=== PATIENT | male | born 1975 | race American Indian/Alaskan Native ===

== ENCOUNTER 2019-10-26 14:02 | Emergency (ER) | payer SELFPAY ==
--- NOTE | 2019-10-26 15:42 | Event Note ---
ED Screening Note ED Screening Note: pt has N/V/D abd pain states he has a hx of crohns no fever states he has not seen a GI doctor in 3 years This initial assessment/diagnostic orders/clinical plan/treatment(s) is/are subject to change based on patients health status, clinical progression and re- assessment by fellow clinical providers in the ED. Further treatment and workup at subsequent clinical providers discretion. Patient/guardian urged not to elope from the ED as their condition may be serious if not clinically assessed and man aged. Initial orders include: labs
[2019-10-26 16:22] LABS: Basophils # (Auto) 0.1 K/mm3 (0.0-0.1); Basophils % (Auto) 0.5 % (0.0-1.8); Eosinophils % (Auto) 0.1 % (0.0-4.3); Hematocrit 44.8 % (35.5-45.6); Hemoglobin 14.8 gm/dl (11.8-15.2); Lymphocytes # (Auto) 1.9 K/mm3 (1.2-5.4); Lymphocytes % (Auto) 15.8 % (13.4-35.0); Mean Corpuscular HGB Conc 33 % (32-34); Mean Corpuscular Volume 85 fl (84-94); Monocytes # (Auto) 1.2 K/mm3 (0.0-0.8); Monocytes % (Auto) 9.8 % (0.0-7.3); Platelet Count 207 K/mm3 (140-440); Red Cell Distribution Width 14.8 % (13.2-15.2)
[2019-10-26 16:42] LABS: Alanine Aminotransferase 14 units/L (7-56); Albumin 4.2 g/dL (3.9-5); BUN/Creatinine Ratio 23; Blood Urea Nitrogen 23 mg/dL (9-20); Calcium 9.9 mg/dL (8.4-10.2); Hemolysis Index 6
[2019-10-26] MEDS ORDERED: MORPHINE 4 MG/1 ML INJ IV ONE (17:53)
[2019-10-26] MEDS ORDERED: ONDANSETRON 4 MG/2 ML INJ IV ONE (17:53)
--- NOTE | 2019-10-26 17:54 | Emergency Department Report ---
<CHACORTA BUCHANAN - Last Filed: 10/26/19 19:05> ED Abdominal Pain HPI - General Chief Complaint: Nausea/Vomiting/Diarrhea Stated Complaint: CHRONE'S/VOMITTING Time Seen by Provider: 10/26/19 15:40 Source: patient Mode of arrival: Ambulatory Limitations: No Limitations - History of Present Illness Initial Comments: Is a pleasant 44-year-old male who presents the emergency department with chief complaint with generalized abdominal pain, nausea, vomiting, diarrhea. Patient's past medical Crohn's disease but is not on any medications currently. Patient describes the pain as cramping and rates it as a 8 out of 10 in severity . Patient denies bloody or bilious vomiting, bloody stools, melena, cheesy, fever, chills, night sweats, headache, tinnitus, blurry vision or any associated symptoms. Patient denies any known allergies to medications. MD Complaint: abdominal pain Severity scale (0 -10): 1 - Related Data Previous Rx's Medication Instructions Recorded Last Taken Type Acetaminophen/Codeine [Tylenol 1 tab PO Q6H PRN #12 tab 10/26/19 Unknown Rx /Codeine # 3 tab] Ciprofloxacin HCl [Ciprofloxacin 500 mg PO Q12HR #10 tab 10/26/19 Unknown Rx TAB] Ondansetron [Zofran Odt] 4 mg PO Q8HR PRN #12 tab.rapdis 10/26/19 Unknown Rx metroNIDAZOLE [Flagyl TAB] 250 mg PO Q12HR #14 tab 10/26/19 Unknown Rx Allergies Allergy/AdvReac Type Severity Reaction Status Date / Time No Known Allergies Allergy Unverified 10/26/19 14:06 ED Review of Systems Comment: All other systems reviewed and negative Constitutional: denies: chills, fever Eyes: denies: eye pain, eye discharge, vision change ENT: denies: ear pain, throat pain Respiratory: denies: cough, shortness of breath, wheezing Cardiovascular: denies: chest pain, palpitations Endocrine: no symptoms reported Gastrointestinal: as per HPI, abdominal pain, nausea, vomiting, diarrhea Genitourinary: denies: urgency, dysuria Musculoskeletal: denies: back pain, joint swelling, arthralgia Skin: denies: rash, lesions Neurological: denies: headache, weakness, paresthesias Psychiatric: denies: anxiety, depression Hematological/Lymphatic: denies: easy bleeding, easy bruising ED Past Medical Hx - Past Medical History Previous Medical History?: Yes Additional medical history: chrons - Surgical History Past Surgical History?: No - Social History Smoking Status: Never Smoker Substance Use Type: None - Medications Home Medications: Home Medications Medication Instructions Recorded Confirmed Last Taken Type Acetaminophen/Codeine [Tylenol 1 tab PO Q6H PRN #12 tab 10/26/19 Unknown Rx /Codeine # 3 tab] Ciprofloxacin HCl [Ciprofloxacin 500 mg PO Q12HR #10 tab 10/26/19 Unknown Rx TAB] Ondansetron [Zofran Odt] 4 mg PO Q8HR PRN #12 tab.rapdis 10/26/19 Unknown Rx metroNIDAZOLE [Flagyl TAB] 250 mg PO Q12HR #14 tab 10/26/19 Unknown Rx ED Physical Exam - General Limitations: No Limitations General appearance: alert, in no apparent distress - Head Head exam: Present: atraumatic, normocephalic - Eye Eye exam: Present: normal appearance, PERRL, EOMI Pupils: Present: normal accommodation - ENT ENT exam: Present: normal exam, normal orophraynx, mucous membranes moist - Neck Neck exam: Present: normal inspection, full ROM. Absent: tenderness, meningismus, lymphadenopathy, thyromegaly - Respiratory Respiratory exam: Present: normal lung sounds bilaterally. Absent: respiratory distress, wheezes, rales, rhonchi, stridor - Cardiovascular Cardiovascular Exam: Present: regular rate, normal rhythm, normal heart sounds. Absent: systolic murmur, diastolic murmur, rubs, gallop - GI/Abdominal GI/Abdominal exam: Present: soft, tenderness (generalized tenderness to palpation, no rebound or guarding [place] Uriostegui sign, negative McBurney's point tenderness), normal bowel sounds. Absent: distended - Rectal Rectal exam: Present: deferred - Extremities Exam Extremities exam: Present: normal inspection - Back Exam Back exam: Present: normal inspection - Neurological Exam Neurological exam: Present: alert, oriented X3 - Psychiatric Psychiatric exam: Present: normal affect, normal mood - Skin Skin exam: Present: warm, dry, intact, normal color. Absent: rash ED Medical Decision Making - Lab Data Result diagrams: 10/26/19 16:06 10/26/19 16:06 Lab Results 10/26/19 10/26/19 Range/Units 16:06 16:06 WBC 12.0 H (4.5-11.0) K/mm3 RBC 5.30 H (3.65-5.03) M/mm3 Hgb 14.8 (11.8-15.2) gm/dl Hct 44.8 (35.5-45.6) % MCV 85 (84-94) fl MCH 28 (28-32) pg MCHC 33 (32-34) % RDW 14.8 (13.2-15.2) % Plt Count 207 (140-440) K/mm3 Lymph % (Auto) 15.8 (13.4-35.0) % [place] % (Auto) 9.8 H (0.0-7.3) % Eos % (Auto) 0.1 (0.0-4.3) % Baso % (Auto) 0.5 (0.0-1.8) % Lymph # 1.9 (1.2-5.4) K/mm3 [place] # 1.2 H (0.0-0.8) K/mm3 Eos # 0.0 (0.0-0.4) K/mm3 Baso # 0.1 (0.0-0.1) K/mm3 Seg Neutrophils % 73.8 H (40.0-70.0) % Seg Neutrophils # 8.9 H (1.8-7.7) K/mm3 Sodium 134 L (137-145) mmol/L Potassium 3.8 (3.6-5.0) mmol/L Chloride 95.8 L (98-107) mmol/L Carbon Dioxide 20 L (22-30) mmol/L Anion Gap 22 mmol/L BUN 23 H (9-20) mg/dL Creatinine 1.0 (0.8-1.5) mg/dL Estimated GFR > 60 ml/min BUN/Creatinine Ratio 23 % Glucose 108 H (75-100) mg/dL Calcium 9.9 (8.4-10.2) mg/dL Total Bilirubin 0.30 (0.1-1.2) mg/dL AST 24 (5-40) units/L ALT 14 (7-56) units/L Alkaline Phosphatase 108 (35-129) units/L Total Protein 8.7 H (6.3-8.2) g/dL Albumin 4.2 (3.9-5) g/dL Albumin/Globulin Ratio 0.9 % Lipase 16 (13-60) units/L - Radiology Data Radiology results: pending - Medical Decision Making Patient nontoxic in no acute distress. Patient generalized abdominal tenderness but no rebound or guarding and negative McBurney's point tenderness. Lab showed a mild leukocytosis. Patient was slightly tachycardic on initial evaluation however on exam his heart sounds did not sound tachycardic. Lactate and blood cultures were ordered as well as CT of abdomen and pelvis with IV contrast. Patient will be signed out to colleague CLAIRE Garcia pending CT and reevaluation. Patient nontoxic in no acute distress at this time. - Differential Diagnosis Crohn's flare, appendicitis, abscess ED Disposition Clinical Impression: Crohn's colitis Abdominal pain Qualifiers: Abdominal location: generalized Qualified Code(s): R10.84 - Generalized abdominal pain Disposition: - TO HOME OR SELFCARE Condition: Stable Instructions: Acute Abdominal Pain (ED) Prescriptions: Ciprofloxacin HCl [Ciprofloxacin TAB] 500 mg PO Q12HR #10 tab metroNIDAZOLE [Flagyl TAB] 250 mg PO Q12HR #14 tab Acetaminophen/Codeine [Tylenol /Codeine # 3 tab] 1 tab PO Q6H PRN #12 tab PRN Reason: Pain , Severe (7-10) Ondansetron [Zofran Odt] 4 mg PO Q8HR PRN #12 tab.rapdis PRN Reason: Nausea Referrals: PRIMARY CARE, [Primary Care Provider] - 3-5 Days [facility] [Provider Group] - 3-5 Days Forms: Work/School Release Form(ED) <GABINO BUI - Last Filed: 10/26/19 22:38> ED Review of Systems ROS: Stated complaint: CHRONE'S/VOMITTING Other details as noted in HPI ED Course Vital Signs 10/26/19 10/26/19 15:40 20:44 Temperature 99.0 F 98.9 F Pulse Rate 118 H 108 H Respiratory 18 16 Rate Blood Pressure 140/94 Blood Pressure 140/94 146/88 [Right] O2 Sat by Pulse 99 97 Oximetry ED Medical Decision Making - Lab Data Result diagrams: 10/26/19 16:06 10/26/19 16:06 - Radiology Data Radiology results: report reviewed Patient: PATRICIA MARIA MR#: [id number] : 1975 Acct:[id number] Age/Sex: 44 / M ADM Date: 10/26/19 Loc: ED Attending Dr: Ordering Physician: CLAIRE HUANG Date of Service: 10/26/19 Procedure(s): CT abdomen pelvis w con Accession Number(s): [id number] cc: CLAIRE HUANG CT ABDOMEN AND PELVIS WITH CONTRAST INDICATION: abdominal pain, fever, crohns disease CONTRAST: 100 cc Omnipaque 300 IV COMPARISON: None available. All CT scans at this location are performed using CT dose reduction for ALARA by means of automated exposure control. FINDINGS: Rounded areas of lucency with sclerotic borders in the left ilium have a benign type of appearance. Lung bases are mildly blurred by motion. No areas of consolidation are seen. Mild probable scarring is noted in the right lower lobe medially. No pneumoperitoneum is seen. No significant abdominal wall herniation is seen. Probable tiny cysts are seen in the liver. Gallbladder and bile ducts appear within normal limits. Pancreas shows no obvious masses or inflammation. No evidence of bowel obstruction is seen. Appendix is not visualized. No inflammatory changes are seen. Terminal ileum shows possible mild wall edema as can be seen with Crohn's disease and there is a suggestion of mild wall enhancement, also associated with that process. However, I do not see obvious complication. No other areas of bowel thickening are seen. No urinary obstructive changes are noted. A pelvic left kidney is noted. No free fluid is seen. Mild colonic diverticulosis is noted. IMPRESSION: 1. Findings in the terminal ileum suggest mild inflammation from Crohn's disease without obvious complication 2. 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 ED Disposition Is pt being admited?: No Does the pt Need Aspirin: No
--- NOTE | 2019-10-26 20:37 | Cat Scan Report ---
CT ABDOMEN AND PELVIS WITH CONTRAST INDICATION: abdominal pain, fever, crohns disease CONTRAST: 100 cc Omnipaque 300 IV COMPARISON: None available. All CT scans at this location are performed using CT dose reduction for ALARA by means of automated e xposure control. FINDINGS: Rounded areas of lucency with sclerotic borders in the left ilium have a benign type of damien earance. Lung bases are mildly blurred by motion. No areas of consolidation are seen. Mild probable s carring is noted in the right lower lobe medially. No pneumoperitoneum is seen. No significant abdomi nal wall herniation is seen. Probable tiny cysts are seen in the liver. Gallbladder and bile ducts ap pear within normal limits. Pancreas shows no obvious masses or inflammation. No evidence of bowel obs truction is seen. Appendix is not visualized. No inflammatory changes are seen. Terminal ileum shows possible mild wall edema as can be seen with Crohn's disease and there is a suggestion of mild wall e nhancement, also associated with that process. However, I do not see obvious complication. No other a reas of bowel thickening are seen. No urinary obstructive changes are noted. A pelvic left kidney is noted. No free fluid is seen. Mild colonic diverticulosis is noted. IMPRESSION: 1. Findings in the terminal ileum suggest mild inflammation from Crohn's disease without obvious comp lication 2. 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
[2019-10-26 20:45] VITALS: BP 146/88
== END 2019-10-26 21:50 | disposition home or self-care (01) ==
LOC: ED 14:02
DX: K52.9 Noninfective gastroenteritis and colitis, unspecified (principal); K50.10 Crohn's disease of large intestine without complications
CPT/HCPCS: 36415; 74177; 80053; 82140; 83690; 85025; 87040; 96374; 96375; 99284; J2270; J2405; Q9967